=== PATIENT | male | born 1950 | race African-American/Black ===

== ENCOUNTER 2017-05-06 05:08 | Inpatient (IN) | payer MEDICARE ==
[2017-05-06 05:43] LABS: #Eosinphils 0.1 thou/uL (0.0-0.7); #Lymphocytes 1.5 thou/uL (1.20-3.40); #Monocytes 0.6 thou/uL (0.11-0.59); #Neutrophils 1.6 thou/uL (1.40-6.50); %Basophils 0.5 % (0.0-1.0); %Eosinophils 2.8 % (0.0-10.0); %Lymphocytes 39.5 % (21.0-51.0); %Monocytes 14.8 % (0.0-10.0); Red Blood Cell (RBC) Count 3.28 mill/uL (4.70-6.10); White Blood Cell (WBC) Count 3.8 thou/uL (4.8-10.8)
[2017-05-06 05:55] LABS: ALT (SGPT) 8 U/L (8-55); AST (SGOT) 29 U/L (5-34); Alkaline Phosphatase 55 U/L (40-150); Anion Gap 12 mmol/L (10-20); BUN (Urea Nitrogen) 24 mg/dL (8.4-25.7); Bilirubin, Total 1.7 mg/dL (0.2-1.2); Calc. Creatinine Clearance 0 mL/min (70-130); Calcium 8.9 mg/dL (7.8-10.44); Carbon Dioxide 25 mmol/L (23-31); Chloride 107 mmol/L (98-107); Estimated GFR-MDRD 70; Globulin 5.6 g/dL (2.4-3.5); Protein, Total 8.8 g/dL (5.8-8.1)
[2017-05-06 05:59] LABS: Troponin I 0.031 ng/mL (< 0.028)
[2017-05-06] MEDS ORDERED: Ondansetron HCl/PF 4 MG/2 ML Vial IVP PRN (08:25)
[2017-05-06] MEDS ORDERED: Ondansetron ODT 4 MG TAB PO PRN ×2 (08:25→12:38)
[2017-05-06] MEDS ORDERED: Acetaminophen 325 MG TAB PO PRN (08:26)
[2017-05-06 09:24] LABS: BF Reference Range Comment Note:
[2017-05-06 09:37] LABS: Troponin I 0.025 ng/mL (< 0.028)
[2017-05-06 10:07] LABS: Fluid, Protein 4.7 g/dL (Not Available)
[2017-05-06 10:38] LABS: BF Color Yellow
[2017-05-06 11:49] LABS: Number Cells Counted-Fluids 100
[2017-05-06 12:04] LABS: Troponin I 0.028 ng/mL (< 0.028)
[2017-05-06] MEDS ORDERED: hydrALAZINE 20 MG/ML VIAL SLOW IVP PRN (12:38)
[2017-05-06] MEDS ORDERED: Acetaminophen 500 MG TAB PO PRN (12:38)
[2017-05-06] MEDS ORDERED: cloNIDine 0.1 MG TAB PO PRN (12:38)
[2017-05-06] MEDS ORDERED: cefTRIAXone\\ROCEPHIN 1 GM in Sodium Chloride 0.9% 100 ML IVPB SCH (12:45)
[2017-05-06] MEDS ORDERED: CEFAZOLIN 1 GM, Syringe 2.5 ML in Sterile Water 7.5 ML SLOW IVP SCH (13:00)
--- NOTE | 2017-05-06 13:46 | HP ---
DATE OF ADMISSION: 05/06/2017 PRIMARY CARE PROVIDER: Dr. Campos at the [facility] in [place], [place]. CHIEF COMPLAINT: Shortness of breath and swelling. HISTORY OF PRESENT ILLNESS: This is a 67-year-old male well known to the primary children[facility] hospital service due to chronic hepatic cirrhosis with recurrent ascites and congestive heart failure with anasarca. The patient had noticed over the last 48 hours, increased shortness of breath, swelling of his lower extremities and increasing abdominal girth. The patient states he has been compliant w ith his chronic medication regimen including spironolactone and Lasix; however, has had increasing d ietary sodium ingestion. The patient states the symptoms of shortness of breath increased with nonp roductive cough and difficulty lying flat. The patient denies any specific fever, chills, trauma, o r injury. The patient states he normally uses oxygen intermittently at home by nasal cannula as wel l as bronchodilator therapy with DuoNebs. The patient states he was not receiving any relief with h is regular medications, DuoNebs and presented to the emergency room for evaluation. In the emergenc y room, patient underwent evaluation including initiation of oxygen therapy as well as undergoing pa racentesis with 3 liters of ascites removed. The patient states it symptomatically improved after t he paracentesis, but has residual shortness of breath. PAST MEDICAL HISTORY: 1. Hepatic cirrhosis with ascites. 2. Chronic hepatitis C. 3. Bioprosthetic aortic valve replacement. 4. Chronic atrial fibrillation with variable rate. 5. Nonischemic cardiomyopathy with ejection fraction of 30%-35%. 6. Portal hypertension. 7. Hypertension. 8. Dyslipidemia. 9. Chronic cocaine abuse. 10. Recurrent hospital admissions. 11. Systolic congestive heart failure with ejection fraction of 30%-35%. PAST SURGICAL HISTORY: 1. Status post right hip surgery. 2. Status post ankle surgery. CURRENT MEDICATIONS: 1. Aspirin 81 mg 1 tablet p.o. daily. 2. Coreg 25 mg p.o. b.i.d. 3. Vitamin D3 1000 units p.o. daily. 4. Docusate sodium 250 mg p.o. daily. 5. Lexapro 20 mg p.o. daily. 6. Ferrous sulfate 325 mg 1 tablet p.o. daily. 7. Lasix 40 mg 1 tablet p.o. daily. 8. DuoNeb 3 mL nebulized q.4 hours p.r.n. 9. Imdur 30 mg 1 tablet p.o. daily. 10. Protonix 40 mg 1 tablet p.o. daily. 11. K-Dur 20 mEq one tablet p.o. daily. 12. Aldactone 25 mg p.o. b.i.d. ALLERGIES: No known drug allergies. FAMILY HISTORY: Mom in her 70s of ovarian cancer. Father with history of coronary artery dise ase, in his 70s. SOCIAL HISTORY: The patient resides in [place], [place]. Disabled. Former . Admits t o cocaine use regularly. No tobacco or alcohol use. Resides with his sister. REVIEW OF SYSTEMS: The following complete review of systems was negative, unless otherwise mentione d in the HPI or below: Constitutional: Weight loss or gain, ability to conduct usual activities. Skin: Rash, itching. Eyes: Double vision, pain. ENT/Mouth: Nose bleeding, neck stiffness, pain, tenderness. Cardiovascular: Palpitations, dyspnea on exertion, orthopnea. Respiratory: Shortness of breath, wheezing, cough, hemoptysis, fever or night sweats. Gastrointestinal: Poor appetite, abdominal pain, heartburn, nausea, vomiting, constipation, or diar amilcar. Genitourinary: Urgency, frequency, dysuria, nocturia. Musculoskeletal: Pain, swelling. Neurologic/Psychiatric: Anxiety, depression. Allergy/Immunologic: Skin rash, bleeding tendency. Otherwise negative except as stated per HPI. PHYSICAL EXAMINATION: VITAL SIGNS: On admission, blood pressure 188/82, pulse 69, respiratory rate is 18, temperature 97. 9 degrees Fahrenheit, O2 saturation 100% on 2.5 liters per minute by nasal cannula. GENERAL APPEARANCE: This is a 67-year-old male sitting on the hospital bed, alert and oriented x3, in mild respiratory distress. HEENT: Pupils are equal, round, and reactive to light and accommodation. Extraocular muscles are i ntact. No scleral icterus, no conjunctival injection. Nares patent. OP is clear. Teeth in poor r epair. NECK: Supple, no cervical adenopathy, no thyromegaly. Bilateral JVD noted. No evidence of meninge al signs. CHEST: Diminished breath sounds bilaterally with bibasilar crackles and rhonchi. CARDIOVASCULAR: S1 and S2 with irregular rate and rhythm. ABDOMEN: Protuberant with distention, no focal tenderness. Landmarks are difficult to palpate due to patient's body habitus. Positive fluid wave noted. EXTREMITIES: Bilateral pitting edema. Pulses are palpable distally at the dorsalis pedis, posterio r tibial, and popliteal arteries bilaterally. Capillary refill less than 2 seconds. NEUROLOGIC: Cranial nerves II-XII are grossly intact. No focal or lateralizing signs appreciated. PERTINENT LABORATORY DATA AND X-RAY FINDINGS: Sodium 140, potassium 3.9, chloride 107, CO2 25, BUN 24, creatinine 1.25 with estimated GFR of 70, glucose 82, calcium 8.9, total bilirubin 1.7. LFTs wi thin normal limits. Troponin I ranged between 0.025-0.031 and BNP 2162 previously noted at 2388 on 03/02/2017. Albumin 3.2. CBC showed white blood cell count of 3.8, hemoglobin 9.4, hematocrit 31, platelet count 128 with 42% neutrophils. Paracentesis fluid on 05/06/2017 showed hazy consistency. Glucose 87, total protein 4.7, and LDH 127. WBCs 289, RBCs 2300. EKG dated 05/06/2017 by my inter pretation shows atrial fibrillation with rates in the 70s. Normal R-wave progression noted in the p recordial leads. Normal axis. No acute ST-T wave changes appreciated. ASSESSMENT AND PLAN: 1. Acute on chronic systolic congestive heart failure with ejection fraction of 30%-35%. The patie nt will be admitted to the telemetry unit. We will continue Lasix 40 mg IV q.12 hours. Daily weigh ts and strict I's and O's. Recent 2D transthoracic echocardiogram performed on 02/02/2017 showed ej ection fraction of 30%-35% with diastolic dysfunction. Continue to monitor fluid status. 2. 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 Status post paracentesis with 3 lit ers removed. Pathology of the ascitic fluid pending. We will continue Rocephin 1 gram IV q.24 hour s, pending ascitic fluid evaluation. Concern for spontaneous bacterial peritonitis. 3. Question of spontaneous bacterial peritonitis. See #2 above. Continue Rocephin 1 gram IV q.24 hours. 4. Chronic hepatitis C with end-stage liver disease/cirrhosis. Continue spironolactone 25 mg p.o. b.i.d. Continue Lasix as outlined previously. Consult GI Service for any further recommendations 5. Low sodium diet. 6. Hypertension. Resume home antihypertensive regimen and monitor clinical response. 7. Chronic obstructive pulmonary disease. No evidence to suggest acute exacerbation. Main clinica l component of volume overload as stated previously. Continue DuoNebs 3 mL nebulized q.4 hours p.r. n. Continue oxygen to maintain O2 saturations greater than or equal to 90%. 8. Pancytopenia secondary to end-stage liver disease. Stable currently. No evidence to suggest ac tereso blood loss. Repeat CBC in the a.m. 9. Prophylaxis. Sequential compression devices while in bed, Protonix 40 mg p.o. daily. 10. Code status is FULL. Surrogate medical decision maker is patient's sister.
[2017-05-06] MEDS: Furosemide 40 MG/4 ML VIAL SLOW IVP SCH (13:53)
[2017-05-06] MEDS: cefTRIAXone\\ROCEPHIN 1 GM, Syringe 0.4 ML in Sterile Water 9.6 ML SLOW IVP SCH (13:53)
[2017-05-06] MEDS ORDERED: Spironolactone 25 MG TAB PO SCH (17:00)
[2017-05-06] MEDS ORDERED: Promethazine HCl 25 MG/ML VIAL SLOW IVP PRN (19:14)
[2017-05-06] MEDS: Promethazine HCl 12.5 MG in Sodium Chloride 0.9% 50 ML IVPB PRN (20:19)
[2017-05-06] MEDS ORDERED: Carvedilol 3.125 MG TAB PO SCH (21:00)
[2017-05-06] MEDS ORDERED: Famotidine 20 MG TAB PO SCH (21:00)
[2017-05-07] MEDS: Promethazine HCl 12.5 MG in Sodium Chloride 0.9% 50 ML IVPB PRN ×2 (02:43→15:37)
[2017-05-07] MEDS: Furosemide 40 MG/4 ML VIAL SLOW IVP SCH (06:21)
[2017-05-07 06:22] LABS: Band 10 % (5-11); Elliptocytes SLIGHT = 2-5 cells (100X) (0-1/hpf); Hematocrit 27.2 % (42.0-52.0); Mean Platelet Volume 10.5 fL (7.4-10.4); Neutrophil 79 % (42-75); Red Blood Cell (RBC) Count 2.93 mill/uL (4.70-6.10); Target Cells SLIGHT = 2-5 cells (100X) (0-1/hpf); White Blood Cell (WBC) Count 7.8 thou/uL (4.8-10.8)
[2017-05-07 06:26] LABS: ALT (SGPT) 9 U/L (8-55); AST (SGOT) 30 U/L (5-34); Alkaline Phosphatase 47 U/L (40-150); Anion Gap 10 mmol/L (10-20); BUN (Urea Nitrogen) 27 mg/dL (8.4-25.7); Bilirubin, Total 1.7 mg/dL (0.2-1.2); Calc. Creatinine Clearance 68 mL/min (70-130); Calcium 8.4 mg/dL (7.8-10.44); Carbon Dioxide 24 mmol/L (23-31); Chloride 105 mmol/L (98-107); Estimated GFR-MDRD 68; Globulin 4.6 g/dL (2.4-3.5); Protein, Total 7.3 g/dL (5.8-8.1)
--- NOTE | 2017-05-07 08:03 | CON ---
DATE OF CONSULTATION: 05/06/2017 HISTORY OF PRESENT ILLNESS: The patient is a 67-year-old -[place]ong[place] gentleman who has been se en in the past for ascites felt secondary to right heart failure. His main complaint was increasing shortness of breath and swelling in his lower extremities, scrotum and abdomen. He has been follow ed at the [place] in [place]. He subsequently underwent a paracentesis with improvement in his s welling. He has had no fever or chills. No nausea or vomiting. He has no melena or hematochezia. PAST MEDICAL HISTORY: Includes, 1. Cardiomyopathy with ejection fraction of 30%-35% and right heart failure. 2. Chronic hepatitis C. 3. Aortic valve replacement. 4. Atrial fibrillation. PAST SURGICAL HISTORY: Includes hip and ankle surgery. MEDICATIONS ON ADMISSION: Include aspirin 81 mg p.o. daily, Aldactone 25 mg p.o. b.i.d., K-Dur 20 m Eq p.o. daily, Protonix 40 mg 1 p.o. daily, Imdur 30 mg 1 p.o. daily, DuoNeb, furosemide 40 mg 1 p.o . daily, iron, Lexapro 20 mg p.o. every day, docusate sodium 250 mg p.o. b.i.d., vitamin D, and Core g 25 mg p.o. daily. ALLERGIES: No known allergies. SOCIAL HISTORY: Does not smoke or drink. Apparently continues to use cocaine regularly. FAMILY HISTORY: Negative for GI or liver disease. REVIEW OF SYSTEMS: CONSTITUTIONAL: No fever or chills. No weight loss. EYES: No blurred vision or double vision. ENT: No sore throat or earaches. CARDIOVASCULAR: No chest pain, palpitations. PULMONARY: Positive for shortness of breath. Negative for wheezes. GASTROINTESTINAL: See above. GENITOURINARY: No hematuria or dysuria. MUSCULOSKELETAL: No joint pain or muscle weakness. SKI N: No rashes. NEUROLOGIC: No numbness or seizure activity. PHYSICAL EXAMINATION: GENERAL: Shows older -Mongolian gentleman in no apparent distress. VITAL SIGNS: Temperature is 98.3, pulse 68, respiratory rate 20, blood pressure 104/57. HEENT: Showed some poor dentition. NECK: Supple. CHEST: Clear. CARDIOVASCULAR: Regular rate and rhythm. ABDOMEN: Protuberant, soft, no palpable organomegaly or masses. RECTAL: Deferred. Scrotum shows significant edema. EXTREMITIES: Showed 1+ bilateral edema. LABORATORY DATA: On admission shows bilirubin of 1.7, BNP of 2162, total protein 88, and albumin 3. 2. White blood cell count 3.8, hemoglobin 9.4, hematocrit 31.0, and platelet count 128,000. Parace ntesis fluid shows 289 WBCs with 1% neutrophils, total protein is 4.7. Previous albumin is 1.4 with serum albumin, ascites gradient of 0.9. ASSESSMENT: 1. Cardiomyopathy with low ejection fraction and right heart failure. 2. Ascites secondary to #1. 3. History of hepatitis C - patient is not a treatment candidate. 4. Aortic valve replacement. RECOMMENDATIONS: 1. Continue periodic paracentesis, this can be performed on an outpatient basis. 2. Continue spironolactone. The dose here could be increased from 50 mg per day to 1-200 mg per da y. 3. No evidence of SBP. Therefore, antibiotics can be discontinued. 4. Continue furosemide. 5. Low sodium diet. 6. Fluid restriction. Patient is essentially stable for discharge from gastrointestinal standpoint.
[2017-05-07] MEDS: Docusate (Surfak) 240 MG CAP PO SCH (09:29)
[2017-05-07] MEDS: Ferrous Sulfate 325 MG TAB PO SCH (09:29)
[2017-05-07] MEDS: Escitalopram Oxalate 20 mg Tablet PO SCH (09:29)
[2017-05-07] MEDS: Potassium Chloride 20 MEQ TAB PO SCH (09:30)
[2017-05-07] MEDS: Spironolactone 100 MG TAB PO SCH (10:15)
[2017-05-07] MEDS: Carvedilol 25 MG TAB PO SCH ×2 (10:15→20:28)
--- NOTE | 2017-05-07 10:21 | PDOC.PN ---
- Subjective Encounter Start Date: 05/07/17 Encounter Start Time: 10:10 Subjective: f/u for cirrhosis and CHF with volume overload. Received IV Lasix and -: Aldactone in addition to paracentesis with 3 L removed. Overall feeling -: better. Nsg reports BP low and morning meds were held. - Objective Resuscitation Status: Resuscitation Status FULL:Full Resuscitation MAR Reviewed: Yes Vital Signs & Weight: Vital Signs (12 hours) Temp Pulse Resp BP BP Pulse Ox 05/07/17 09:38 70 104/55 L 05/07/17 09:25 63 93/52 L 05/07/17 09:18 98.2 F 68 20 85/48 L 94 L 05/07/17 04:20 93 L 05/07/17 04:00 98.3 F 68 20 104/57 L 96 Weight Weight 184 lb 11.2 oz I&O: 05/06/17 05/07/17 05/08/17 06:59 06:59 06:59 Intake Total 1540 Output Total 1275 Balance 265 Result Diagrams: 05/07/17 05:36 05/07/17 05:36 Additional Labs: Microbiology 05/06/17 07:30 Paracentesis fluid Body Fluid Culture - Preliminary Laboratory Tests 05/06/17 05/06/17 05/06/17 05:20 05:20 05:20 Hgb 9.4 L Plt Count 128 L Creatinine 1.25 B-Natriuretic Peptide 2162.2 H Albumin 05/07/17 05:36 Hgb Plt Count Creatinine B-Natriuretic Peptide Albumin 2.7 L EKG Reviewed by me: Yes (Tele - A-fib in 80's) Phys Exam - Physical Examination Constitutional: NAD HEENT: PERRLA, oral pharynx no lesions Neck: no JVD, supple basilar coarse sounds and crackles Respiratory: no wheezing Cardiovascular: irregular mild distention Gastrointestinal: soft, positive bowel sounds Musculoskeletal: pulses present, edema present Neurological: normal sensation, moves all 4 limbs Psychiatric: A&O x 3 Skin: normal turgor, cap refill <2 seconds Dx/Plan (1) Acute on chronic systolic CHF (congestive heart failure) Code(s): I50.23 - ACUTE ON CHRONIC SYSTOLIC (CONGESTIVE) HEART FAILURE Status : Acute Comment: EF 30-35%, hold Lasix this am due to hypotension, monitor fluid status (2) Atrial fibrillation Code(s): I48.91 - UNSPECIFIED ATRIAL FIBRILLATION Status: Chronic Qualifiers: Atrial fibrillation type: chronic Qualified Code(s): I48.2 - Chronic atrial fibrillation Comment: Rate controlled currently, continue Coreg (3) Liver disease, chronic, with cirrhosis Code(s): K74.60 - UNSPECIFIED CIRRHOSIS OF LIVER; K76.9 - LIVER DISEASE, UNSPECIFIED Status: Chronic Comment: also has hep c, s/p paracentesis with 3L removed (4) Nonischemic cardiomyopathy Code(s): I42.9 - CARDIOMYOPATHY, UNSPECIFIED Status: Chronic Comment: EF 30- 35%, decompensated, see above (5) Pancytopenia Code(s): D61.818 - OTHER PANCYTOPENIA Status: Chronic Comment: due to Hep c cirrhosis. - Plan continue antibiotics, PT/OT, licensed social worker, DVT proph w/SCDs Stable currently -: Hold Diuretics this am due to hypotension -: Convert Lasix to 40mg po daily -: PT for evaluation/mobilization -: Antiemetics prn * Continue Rocephin 1gm IV q24h for one more dose then d/c * AM lab: BMP, CBC * ? Home in 24h
[2017-05-07] MEDS: cefTRIAXone\\ROCEPHIN 1 GM, Syringe 0.4 ML in Sterile Water 9.6 ML SLOW IVP SCH (14:14)
[2017-05-08 06:23] LABS: Anion Gap 10 mmol/L (10-20); BUN (Urea Nitrogen) 31 mg/dL (8.4-25.7); Calc. Creatinine Clearance 65 mL/min (70-130); Calcium 8.6 mg/dL (7.8-10.44); Carbon Dioxide 25 mmol/L (23-31); Chloride 103 mmol/L (98-107); Estimated GFR-MDRD 65
[2017-05-08 06:27] LABS: Anisocytosis MODERATE=16-30 cells (100X) (0-5/hpf); Band 7 % (5-11); Elliptocytes MODERATE= 6-15 cells (100X) (0-1/hpf); Hematocrit 27.1 % (42.0-52.0); Mean Platelet Volume 9.8 fL (7.4-10.4); Neutrophil 65 % (42-75); Red Blood Cell (RBC) Count 2.88 mill/uL (4.70-6.10); White Blood Cell (WBC) Count 5.2 thou/uL (4.8-10.8)
[2017-05-08] MEDS: Spironolactone 100 MG TAB PO SCH (08:42)
[2017-05-08] MEDS: Potassium Chloride 20 MEQ TAB PO SCH (08:44)
[2017-05-08] MEDS: Carvedilol 25 MG TAB PO SCH ×2 (08:45→21:19)
[2017-05-08] MEDS: Ferrous Sulfate 325 MG TAB PO SCH (08:45)
[2017-05-08] MEDS: Docusate (Surfak) 240 MG CAP PO SCH (08:45)
[2017-05-08] MEDS: Escitalopram Oxalate 20 mg Tablet PO SCH (08:45)
--- NOTE | 2017-05-08 10:23 | PDOC.PN ---
- Subjective Encounter Start Date: 05/08/17 Encounter Start Time: 10:00 Subjective: f/u for cirrhosis, volume overload and s/p paracentesis with 3L removed. -: No fever. SOB less today. Still weak and some residual coughing. - Objective Resuscitation Status: Resuscitation Status FULL:Full Resuscitation MAR Reviewed: Yes Vital Signs & Weight: Vital Signs (12 hours) Temp Pulse Resp BP BP Pulse Ox 05/08/17 08:49 98.3 F 66 16 125/56 L 92 L 05/08/17 08:17 98.3 F 66 16 05/08/17 05:25 98.3 F 67 18 108/54 L 98 Weight Weight 186 lb I&O: 05/07/17 05/08/17 05/09/17 06:59 06:59 06:59 Intake Total 1540 1520 Output Total 1275 1025 Balance 265 495 Result Diagrams: 05/08/17 05:35 05/08/17 05:35 Additional Labs: Microbiology 05/06/17 07:30 Paracentesis fluid Body Fluid Culture - Preliminary Laboratory Tests 05/06/17 05/06/17 05/06/17 05:20 05:20 05:20 Hgb 9.4 L Plt Count 128 L Creatinine 1.25 B-Natriuretic Peptide 2162.2 H Albumin 05/07/17 05:36 Hgb Plt Count Creatinine B-Natriuretic Peptide Albumin 2.7 L EKG Reviewed by me: Yes (Tele: A-fib in 70's) Phys Exam - Physical Examination Constitutional: NAD alert, responsive HEENT: PERRLA, oral pharynx no lesions Neck: no JVD, supple few basilar coarse sounds Cardiovascular: irregular moderate distention, diffuse tenderness Gastrointestinal: soft, positive bowel sounds Musculoskeletal: no edema, pulses present Neurological: moves all 4 limbs Psychiatric: A&O x 3 Skin: normal turgor, cap refill <2 seconds Dx/Plan (1) Acute on chronic systolic CHF (congestive heart failure) Code(s): I50.23 - ACUTE ON CHRONIC SYSTOLIC (CONGESTIVE) HEART FAILURE Status : Acute Comment: EF 30-35%, hold Lasix this am due to hypotension, monitor fluid status (2) Atrial fibrillation Code(s): I48.91 - UNSPECIFIED ATRIAL FIBRILLATION Status: Chronic Qualifiers: Atrial fibrillation type: chronic Qualified Code(s): I48.2 - Chronic atrial fibrillation Comment: Rate controlled currently, continue Coreg (3) Liver disease, chronic, with cirrhosis Code(s): K74.60 - UNSPECIFIED CIRRHOSIS OF LIVER; K76.9 - LIVER DISEASE, UNSPECIFIED Status: Chronic Comment: also has hep c, s/p paracentesis with 3L removed (4) Nonischemic cardiomyopathy Code(s): I42.9 - CARDIOMYOPATHY, UNSPECIFIED Status: Chronic Comment: EF 30- 35%, decompensated, see above (5) Pancytopenia Code(s): D61.818 - OTHER PANCYTOPENIA Status: Chronic Comment: due to Hep c cirrhosis. - Plan PT/OT, social science professor, out of bed/ambulate, DVT proph w/SCDs Stable overall -: Palliative care assistance appreciated -: Likely candidate for hospice outpt -: Start Lactulose 20gm TID -: Hold Lasix another 24h due to hypotension * Likely home in 24h
[2017-05-08] MEDS: Guaifenesin DM 100-10/5 ML UDCUP PO PRN ×2 (12:40→21:27)
--- NOTE | 2017-05-08 13:00 | PRG ---
DATE OF SERVICE: 05/08/2017 SUBJECTIVE: The patient is about the same, breathing a little bit better. He says his abdominal di stention is about the same. OBJECTIVE: VITAL SIGNS: Temperature 98.7, pulse 68, respiratory rate 18, blood pressure 97/50. CHEST: Clear. CARDIOVASCULAR: Regular rate and rhythm. ABDOMEN: Protuberant, nontender. EXTREMITIES: Show 1+ edema. LABORATORY DATA: Shows a white blood cell count of 5.3, hemoglobin 8.3, hematocrit 27.1, platelet c ount 103. Chemistries show sodium 134, BUN 31, creatinine 1.34, glucose 78. ASSESSMENT: 1. Ascites. 2. Cardiomyopathy. 3. Cirrhosis. RECOMMENDATIONS: Agree with stated plan of outpatient paracentesis with transfer into hospice progr am.
[2017-05-08] MEDS: cefTRIAXone\\ROCEPHIN 1 GM, Syringe 0.4 ML in Sterile Water 9.6 ML SLOW IVP SCH (15:50)
[2017-05-09] MEDS: Promethazine HCl 12.5 MG in Sodium Chloride 0.9% 50 ML IVPB PRN (02:00)
[2017-05-09] MEDS: Spironolactone 100 MG TAB PO SCH (09:39)
[2017-05-09] MEDS: Docusate (Surfak) 240 MG CAP PO SCH (09:39)
[2017-05-09] MEDS: Escitalopram Oxalate 20 mg Tablet PO SCH (09:39)
[2017-05-09] MEDS: Potassium Chloride 20 MEQ TAB PO SCH (09:40)
[2017-05-09] MEDS: Ferrous Sulfate 325 MG TAB PO SCH (09:40)
[2017-05-09] MEDS: Carvedilol 25 MG TAB PO SCH ×2 (09:40→21:32)
[2017-05-09] MEDS: cefTRIAXone\\ROCEPHIN 1 GM, Syringe 0.4 ML in Sterile Water 9.6 ML SLOW IVP SCH (15:03)
--- NOTE | 2017-05-09 16:22 | PDOC.PN ---
- Subjective Encounter Start Date: 05/09/17 Encounter Start Time: 16:00 Subjective: f/u for cirrhosis and volume overload s/p paracentesis with 3L removed. -: Less SOB but not ambulating much in room. Mainly sleeping most of the -: time. - Objective Resuscitation Status: Resuscitation Status FULL:Full Resuscitation MAR Reviewed: Yes Vital Signs & Weight: Vital Signs (12 hours) Temp Pulse Resp BP BP Pulse Ox 05/09/17 12:50 98.2 F 64 16 119/56 L 05/09/17 09:45 98.1 F 69 18 100 05/09/17 08:25 98.1 F 69 18 122/52 L 100 Weight Weight 186 lb 9.6 oz I&O: 05/08/17 05/09/17 05/10/17 06:59 06:59 06:59 Intake Total 1520 1260 Output Total 1025 1525 Balance 495 -265 Result Diagrams: 05/08/17 05:35 05/08/17 05:35 EKG Reviewed by me: Yes (Tele - A-fib in 70's) Phys Exam - Physical Examination Constitutional: NAD opens eyes and talks briefly to name HEENT: PERRLA, oral pharynx no lesions Neck: no JVD, supple few scattered coarse sounds Cardiovascular: irregular + distention Gastrointestinal: soft, non-tender, positive bowel sounds Musculoskeletal: pulses present, edema present Neurological: normal sensation, moves all 4 limbs Psychiatric: A&O x 3 Skin: normal turgor, cap refill <2 seconds Dx/Plan (1) Acute on chronic systolic CHF (congestive heart failure) Code(s): I50.23 - ACUTE ON CHRONIC SYSTOLIC (CONGESTIVE) HEART FAILURE Status : Acute Comment: EF 30-35%, hold Lasix due to hypotension, monitor fluid status (2) Atrial fibrillation Code(s): I48.91 - UNSPECIFIED ATRIAL FIBRILLATION Status: Chronic Qualifiers: Atrial fibrillation type: chronic Qualified Code(s): I48.2 - Chronic atrial fibrillation Comment: Rate controlled currently, continue Coreg 25mg BID (3) Liver disease, chronic, with cirrhosis Code(s): K74.60 - UNSPECIFIED CIRRHOSIS OF LIVER; K76.9 - LIVER DISEASE, UNSPECIFIED Status: Chronic Comment: also has hep c, s/p paracentesis with 3L removed, continue Lactulose and Aldactone, check Ammonia level in am (4) Nonischemic cardiomyopathy Code(s): I42.9 - CARDIOMYOPATHY, UNSPECIFIED Status: Chronic Comment: EF 30- 35%, decompensated, see above (5) Pancytopenia Code(s): D61.818 - OTHER PANCYTOPENIA Status: Chronic Comment: due to Hep c cirrhosis. - Plan PT/OT, social media marketing analyst, out of bed/ambulate, DVT proph w/SCDs Stable currently -: Continue Coreg 25mg BID -: Continue Lactulose 20gm TID -: Continue Aldactone 100mg daily -: AM lab: BMP, Ammonia * Likely home in 24h
[2017-05-10 05:40] LABS: Anion Gap 14 mmol/L (10-20); BUN (Urea Nitrogen) 30 mg/dL (8.4-25.7); Calc. Creatinine Clearance 65 mL/min (70-130); Calcium 8.7 mg/dL (7.8-10.44); Carbon Dioxide 21 mmol/L (23-31); Chloride 105 mmol/L (98-107); Estimated GFR-MDRD 64
--- NOTE | 2017-05-10 08:22 | PDOC.PN ---
- Subjective Encounter Start Date: 05/10/17 Encounter Start Time: 08:50 Subjective: Patient with continued severe distension of abdomen with pressure -: type pain. No changes. - Objective Resuscitation Status: Resuscitation Status FULL:Full Resuscitation MAR Reviewed: Yes Vital Signs & Weight: Vital Signs (12 hours) Temp Pulse Resp BP Pulse Ox 05/10/17 03:51 99 05/10/17 03:50 98.6 F 62 20 110/55 L 90 L 05/09/17 21:31 97.6 F 62 18 118/57 L 99 Weight Weight 181 lb 11.2 oz I&O: 05/09/17 05/10/17 05/11/17 06:59 06:59 06:59 Intake Total 1260 420 Output Total 1525 750 Balance -265 -330 Result Diagrams: 05/08/17 05:35 05/10/17 05:09 Phys Exam - Physical Examination Constitutional: NAD HEENT: moist MMs Respiratory: no wheezing, no rales, no rhonchi Cardiovascular: RRR Gastrointestinal: positive bowel sounds distended, firm, mild TTP diffusely Musculoskeletal: edema present severe scrotal edema Neurological: non-focal, moves all 4 limbs Psychiatric: A&O x 3 Deviation from normal: appears depressed Dx/Plan (1) Acute on chronic systolic CHF (congestive heart failure) Code(s): I50.23 - ACUTE ON CHRONIC SYSTOLIC (CONGESTIVE) HEART FAILURE Status : Acute Comment: EF 30-35%, hold Lasix due to hypotension, monitor fluid status (2) Liver disease, chronic, with cirrhosis Code(s): K74.60 - UNSPECIFIED CIRRHOSIS OF LIVER; K76.9 - LIVER DISEASE, UNSPECIFIED Status: Chronic Comment: also has hep c, s/p paracentesis with 3L removed, continue Lactulose and Aldactone, Ammonia level normal (3) Afib Code(s): I48.91 - UNSPECIFIED ATRIAL FIBRILLATION Status: Chronic (4) Nonischemic cardiomyopathy Code(s): I42.9 - CARDIOMYOPATHY, UNSPECIFIED Status: Chronic Comment: EF 30- 35%, decompensated, see above (5) Pancytopenia Code(s): D61.818 - OTHER PANCYTOPENIA Status: Chronic Comment: due to Hep c cirrhosis. - Plan cont current plan of care ? need repeat paracentesis by GI? Plan d/c home on home health. * . - Discharge Day Encounter end time: 09:25
[2017-05-10] MEDS: Ferrous Sulfate 325 MG TAB PO SCH (09:12)
[2017-05-10] MEDS: Potassium Chloride 20 MEQ TAB PO SCH (09:12)
[2017-05-10] MEDS: Docusate (Surfak) 240 MG CAP PO SCH (09:12)
[2017-05-10] MEDS: Carvedilol 25 MG TAB PO SCH ×2 (09:12→23:13)
[2017-05-10] MEDS: Spironolactone 100 MG TAB PO SCH (09:12)
[2017-05-10] MEDS: Escitalopram Oxalate 20 mg Tablet PO SCH ×2 (09:13→09:15)
[2017-05-10] MEDS ORDERED: Furosemide 40 MG/4 ML VIAL SLOW IVP SCH (12:15)
[2017-05-10] MEDS ORDERED: Furosemide 40 MG TAB PO SCH (12:15)
[2017-05-10] MEDS: Ondansetron HCl/PF 4 MG/2 ML Vial IVP PRN (14:08)
[2017-05-10] MEDS: cefTRIAXone\\ROCEPHIN 1 GM, Syringe 0.4 ML in Sterile Water 9.6 ML SLOW IVP SCH (14:49)
[2017-05-10] MEDS: Guaifenesin DM 100-10/5 ML UDCUP PO PRN (23:15)
[2017-05-11] MEDS ORDERED: Furosemide 40 MG TAB PO SCH (07:30)
--- NOTE | 2017-05-11 08:07 | PDOC.PN ---
- Subjective Encounter Start Date: 05/11/17 Encounter Start Time: 08:00 Subjective: Continued abdominal swelling which is making him more short of breath. No -: other complaints. - Objective Resuscitation Status: Resuscitation Status FULL:Full Resuscitation MAR Reviewed: Yes Vital Signs & Weight: Vital Signs (12 hours) Temp Pulse Resp BP BP Pulse Ox 05/11/17 04:25 98 05/11/17 04:00 98.1 F 77 20 115/54 L 100 05/11/17 00:00 65 18 82/56 L Weight Weight 183 lb 3.2 oz I&O: 05/10/17 05/11/17 05/12/17 06:59 06:59 06:59 Intake Total 420 1270 Output Total 750 1650 Balance -330 -380 Result Diagrams: 05/08/17 05:35 05/10/17 05:09 Phys Exam - Physical Examination Constitutional: NAD HEENT: moist MMs Respiratory: no wheezing, no rales, no rhonchi Cardiovascular: RRR, no significant murmur Gastrointestinal: positive bowel sounds very distended with tense ascites, severe scrotal edema as well Musculoskeletal: pulses present Neurological: non-focal, moves all 4 limbs Psychiatric: normal affect, A&O x 3 Dx/Plan (1) Acute on chronic systolic CHF (congestive heart failure) Code(s): I50.23 - ACUTE ON CHRONIC SYSTOLIC (CONGESTIVE) HEART FAILURE Status : Acute Comment: EF 30-35%, hold Lasix due to hypotension, monitor fluid status (2) Liver disease, chronic, with cirrhosis Code(s): K74.60 - UNSPECIFIED CIRRHOSIS OF LIVER; K76.9 - LIVER DISEASE, UNSPECIFIED Status: Chronic Comment: also has hep c, s/p paracentesis with 3L removed, continue Lactulose and Aldactone, Ammonia level normal (3) Afib Code(s): I48.91 - UNSPECIFIED ATRIAL FIBRILLATION Status: Chronic (4) Nonischemic cardiomyopathy Code(s): I42.9 - CARDIOMYOPATHY, UNSPECIFIED Status: Chronic Comment: EF 30- 35%, decompensated, see above (5) Pancytopenia Code(s): D61.818 - OTHER PANCYTOPENIA Status: Chronic Comment: due to Hep c cirrhosis. - Plan cont current plan of care Consider repeat paracentesis, then can d/c home for continued o/p -: paracentesis. * . - Discharge Day Encounter end time: 08:40
[2017-05-11] MEDS: Spironolactone 100 MG TAB PO SCH (09:32)
[2017-05-11] MEDS: Carvedilol 25 MG TAB PO SCH ×2 (09:32→21:18)
[2017-05-11] MEDS: Ferrous Sulfate 325 MG TAB PO SCH (09:33)
[2017-05-11] MEDS: Docusate (Surfak) 240 MG CAP PO SCH (09:33)
[2017-05-11] MEDS: Potassium Chloride 20 MEQ TAB PO SCH ×2 (09:33→13:35)
[2017-05-11] MEDS: Escitalopram Oxalate 20 mg Tablet PO SCH (09:38)
[2017-05-11] MEDS: Ondansetron HCl/PF 4 MG/2 ML Vial IVP PRN (09:39)
[2017-05-11 10:00] LABS: Anion Gap 15 mmol/L (10-20); BUN (Urea Nitrogen) 32 mg/dL (8.4-25.7); Calc. Creatinine Clearance 52 mL/min (70-130); Calcium 8.9 mg/dL (7.8-10.44); Carbon Dioxide 23 mmol/L (23-31); Chloride 104 mmol/L (98-107); Estimated GFR-MDRD 51
--- NOTE | 2017-05-11 10:45 | PQF ---
CLINICAL DOCUMENTATION IMPROVEMENT CLARIFICATION FORM: ICD-10 Updated PLEASE DO AN ADDENDUM TO THE PROGRESS NOTE WITH ANY DOCUMENTATION UPDATES OR ADDITIONS AND CARRY THROUGH TO DC SUMMARY. THANK YOU. DATE: 05/11/17 ATTN: Dr. Del Angel Please exercise your independent, professional judgment in responding to the clarification form. Clinical indicators are provided on the bottom of this form for your review Please check appropriate box(s): [ X ] Acute Renal Failure (ARF) / Acute Kidney Injury (MICHELLE) (Please specify associated condition, if applicable) [ ] Other Etiology or underlying conditions related to the diagnosis of ARF/ MICHELLE: [ ] Acute on Chronic Renal Failure please specify Stage of CKD (see below) [ ] CKD without ARF/MICHELLE please specify Stage of CKD [ ] Associated Diagnosis: [ ] Other diagnosis [ ] Unable to determine In addition, please specify: Present on Admission (POA): [ ] Yes [ X ] No [ ] Unable to determine For continuity of documentation, please document condition throughout progress notes and discharge summary. Thank You. National Kid[employer] Guidelines for CKD Staging Stage I Kidney damage with normal or increased GFR GFR > 90 Stage II Kidney damage with mildly decreased GFR GFR 60-89 Stage III Kidney damage with moderately decreased GFR GFR 30-59 Stage IVKidney damage with severely decreased GFR GFR 16-29 Stage V Kidney failure GFR <15 ESRD End Stage Renal Disease On dialysis CLINICAL INDICATORS - SIGNS / SYMPTOMS / LABS LAB RESULTS: 05/06 05/08 05/11 CREATININE 1.25 1.34 1.65 ESTIMATED GFR 70 65 51 RISKS: H&P: HX SYSTOLIC CHF; HTN; HEPATIC CIRRHOSIS W/ ASCITES; CHRONIC HEP C. MAR: IV LASIX 40MG 05/10. SPIRONOLACTONE 100MG PO QAM. TREATMENTS: ORDER FOR LAB: CMP 05/06, 05/07 BMP 05/08, 05/10 & 05/11 Thank you, Rosie (This form is maintained as a part of the permanent medical record) 2014 [employer]. All Rights Reserved Rosie Calderon RN, BSN [email or web address] Office: [phone] [facility]
[2017-05-11] MEDS: cefTRIAXone\\ROCEPHIN 1 GM, Syringe 0.4 ML in Sterile Water 9.6 ML SLOW IVP SCH (17:56)
--- NOTE | 2017-05-11 21:57 | PRG ---
DATE OF SERVICE: 05/11/2017 SUBJECTIVE: Mr. Waters complains of increased abdominal distention and tightness. OBJECTIVE: VITAL SIGNS: Temperature 98.6, pulse 64, blood pressure 115/53. GENERAL: He is in no acute distress, alert and oriented. NEUROLOGIC: Reveals no asterixis. LUNGS: Clear to auscultation bilaterally. HEART: Irregular. ABDOMEN: Distended and somewhat tense with ascites. Bowel sounds are present. EXTREMITIES: No lower extremity edema. LABORATORY DATA: Creatinine 1.65. Albumin was 2.7 on 05/07/2017. Platelets 103. He did have para centesis on 05/06/2017, which was negative for evidence of SBP. IMPRESSION: 1. Symptomatic ascites secondary to cirrhosis and history of cardiomyopathy. 2. Acute renal insufficiency. The creatinine has increased from 1.29 to 1.65. He is on spironolac tone 100 mg daily. He is not on at this point. He has remained on ceftriaxone. RECOMMENDATIONS: 1. We will request paracentesis, ultrasound guided by Interventional Radiology for tomorrow. 2. Give albumin 25 grams of up to 3 liters are removed and 50 grams of up to 6 liters are removed. I would not remove more than 6 liters in light of the elevated creatinine. 3. Follow trend of the renal function.
[2017-05-11] MEDS: Guaifenesin DM 100-10/5 ML UDCUP PO PRN (23:30)
[2017-05-12] MEDS: Guaifenesin DM 100-10/5 ML UDCUP PO PRN ×2 (05:41→18:32)
[2017-05-12 07:26] LABS: PTT 37.1 SEC (22.9-36.1); Prothrombin Time 18.8 SEC (12.0-14.7)
[2017-05-12] MEDS ORDERED: Sodium Bicarbonate 2.4 MEQ/5 ML ONE (07:50)
[2017-05-12] MEDS ORDERED: Albumin 25% 25 GM/100 ML BOT IVPB SCH (09:00)
[2017-05-12 09:11] LABS: BF Reference Range Comment Note:
[2017-05-12] MEDS: Carvedilol 25 MG TAB PO SCH ×2 (10:06→22:25)
[2017-05-12] MEDS: Docusate (Surfak) 240 MG CAP PO SCH (10:06)
[2017-05-12] MEDS: Spironolactone 100 MG TAB PO SCH (10:07)
[2017-05-12] MEDS: Ferrous Sulfate 325 MG TAB PO SCH (10:07)
[2017-05-12] MEDS: Escitalopram Oxalate 20 mg Tablet PO SCH (10:08)
--- NOTE | 2017-05-12 10:09 | ULT ---
ULTRASOUND GUIDED PARACENTESIS: Comparison: 03-05-17 FINDINGS: Successful ultrasound guided paracentesis. A total of 6 L of yellow colored ascites was aspirated. T here were no immediate or post procedure complications. Technique: Consent obtained to perform an ultrasound guided paracentesis. Patient's abdomen was evaluated. Righ t lower quadrant was deemed appropriate. Skin was prepped and draped in sterile fashion. 1% Lidocain e, buffered with sodium bicarbonate, used for local anesthesia. Under ultrasound guidance, 7 cm 5 Fr [facility] catheter was advanced into the peritoneal space. Via vacuum bottles, a total of 6 L of yel low colored ascites was aspirated. The patient tolerated the procedure well. No immediate or post pr ocedure complications. IMPRESSION: Successful ultrasound guided paracentesis. POS: [facility]
--- NOTE | 2017-05-12 10:20 | PDOC.PN ---
- Subjective Encounter Start Date: 05/12/17 Encounter Start Time: 10:20 Subjective: Paracentesis with 6 L removed. Feeling much better and breathing -: easier. - Objective Resuscitation Status: Resuscitation Status FULL:Full Resuscitation MAR Reviewed: Yes Vital Signs & Weight: Vital Signs (12 hours) Temp Pulse Resp BP Pulse Ox 05/12/17 08:00 97.2 F L 56 L 18 121/59 L 97 05/12/17 03:44 97.7 F 60 20 105/51 L 97 05/12/17 00:41 82 102/60 05/11/17 23:36 99 05/11/17 23:32 97.8 F 64 20 87/50 L 99 Weight Weight 188 lb 4 oz I&O: 05/11/17 05/12/17 05/13/17 06:59 06:59 06:59 Intake Total 1270 1320 Output Total 1650 1200 Balance -380 120 Result Diagrams: 05/08/17 05:35 05/11/17 09:30 Phys Exam - Physical Examination Constitutional: NAD HEENT: moist MMs Respiratory: no wheezing, no rales, no rhonchi Cardiovascular: RRR Gastrointestinal: positive bowel sounds distended, TTP, softer than yesterday continued scrotal edema Neurological: non-focal, moves all 4 limbs Psychiatric: normal affect, A&O x 3 Dx/Plan (1) Acute on chronic systolic CHF (congestive heart failure) Code(s): I50.23 - ACUTE ON CHRONIC SYSTOLIC (CONGESTIVE) HEART FAILURE Status : Acute Comment: EF 30-35%, hold Lasix due to hypotension and elevated Creatinine, on spironolactone, monitor fluid status (2) Liver disease, chronic, with cirrhosis Code(s): K74.60 - UNSPECIFIED CIRRHOSIS OF LIVER; K76.9 - LIVER DISEASE, UNSPECIFIED Status: Chronic Comment: also has hep c, s/p paracentesis with 3L removed, repeat with 6L removed, continue Lactulose and Aldactone, Ammonia level normal (3) Afib Code(s): I48.91 - UNSPECIFIED ATRIAL FIBRILLATION Status: Chronic (4) Nonischemic cardiomyopathy Code(s): I42.9 - CARDIOMYOPATHY, UNSPECIFIED Status: Chronic Comment: EF 30- 35%, decompensated, see above (5) Pancytopenia Code(s): D61.818 - OTHER PANCYTOPENIA Status: Chronic Comment: due to Hep c cirrhosis. (6) Acute renal failure Status: Acute Comment: recheck creatinine in AM after paracentesis. - Plan cont current plan of care possibly home tomorrow if no significant worsening of renal failure after -: repeat paracentesis * . - Discharge Day Encounter end time: 10:50
[2017-05-12 11:01] LABS: BF Color Yellow
[2017-05-12 11:02] LABS: BF WBC/Nonhematics Ct. - Manua 95 /cumm
[2017-05-12 11:26] LABS: Number Cells Counted-Fluids 100
[2017-05-12] MEDS: cefTRIAXone\\ROCEPHIN 1 GM, Syringe 0.4 ML in Sterile Water 9.6 ML SLOW IVP SCH (14:09)
--- NOTE | 2017-05-12 19:12 | PRG ---
DATE OF SERVICE: 05/12/2017 SUBJECTIVE: Mr. Waters feels much better after his paracentesis. OBJECTIVE: His abdomen is still distended, but much softer now. It is nontender. Fluid studies we re negative for evidence of spontaneous bacterial peritonitis. IMPRESSION: Ascites secondary to cirrhosis and cardiomyopathy. RECOMMENDATIONS: Plan is for discharge tomorrow if his renal function is stable. He is on spironol actone. Lasix was held due to renal insufficiency. The last note by Dr. Hernandez indicated the patient was being transferred to hospice. Unclear what the status of that actually is. I will sign off for now. Please call if GI can be of assistance.
[2017-05-13] MEDS: traMADol HCl 50 MG TAB PO PRN ×2 (00:59→09:08)
[2017-05-13 05:21] LABS: Anion Gap 9 mmol/L (10-20); BUN (Urea Nitrogen) 24 mg/dL (8.4-25.7); Calc. Creatinine Clearance 82 mL/min (70-130); Calcium 8.4 mg/dL (7.8-10.44); Carbon Dioxide 24 mmol/L (23-31); Chloride 105 mmol/L (98-107); Estimated GFR-MDRD 82
[2017-05-13 05:32] LABS: Anisocytosis SLIGHT = 6-15 cells (100X) (0-5/hpf); Hematocrit 27.3 % (42.0-52.0); Mean Platelet Volume 10.2 fL (7.4-10.4); Neutrophil 76 % (42-75); Ovalocytes SLIGHT = 2-5 cells (100X) (0-1/hpf); Red Blood Cell (RBC) Count 2.86 mill/uL (4.70-6.10); Schistocytes SLIGHT = 2-5 cells (100X) (0-1/hpf); White Blood Cell (WBC) Count 5.6 thou/uL (4.8-10.8)
[2017-05-13 06:35] VITALS: BMI 24.8
[2017-05-13 08:06] VITALS: BP 107/54; TEMP 97.8
--- NOTE | 2017-05-13 08:20 | PDOC.PN ---
- Subjective Encounter Start Date: 05/13/17 Encounter Start Time: 08:15 Subjective: Patient with sore right side where paracentesis done. No bleeding/ -: leaking/redness/fever. Better with Tramadol. - Objective Resuscitation Status: Resuscitation Status FULL:Full Resuscitation MAR Reviewed: Yes Vital Signs & Weight: Vital Signs (12 hours) Temp Pulse Resp BP BP Pulse Ox 05/13/17 07:25 97.8 F 66 18 107/54 L 94 L 05/13/17 04:00 98.3 F 71 18 101/56 L 93 L 05/13/17 00:39 91 L Weight Weight 178 lb 1.6 oz I&O: 05/12/17 05/13/17 05/14/17 06:59 06:59 06:59 Intake Total 1320 1630 Output Total 1200 7150 Balance 120 -5520 Result Diagrams: 05/13/17 04:33 05/13/17 04:33 Phys Exam - Physical Examination Constitutional: NAD HEENT: moist MMs Respiratory: no wheezing, no rales, no rhonchi Cardiovascular: RRR, no significant murmur Gastrointestinal: positive bowel sounds distended, soft, TTP around right paracentesis site, no redness/swelling/ warmth, no evidence infection Neurological: non-focal, moves all 4 limbs Psychiatric: normal affect, A&O x 3 Dx/Plan (1) Acute on chronic systolic CHF (congestive heart failure) Code(s): I50.23 - ACUTE ON CHRONIC SYSTOLIC (CONGESTIVE) HEART FAILURE Status : Acute Comment: EF 30-35%, no anticoagulants due to liver failure and risk of bleeding, on Spironolactone (2) Liver disease, chronic, with cirrhosis Code(s): K74.60 - UNSPECIFIED CIRRHOSIS OF LIVER; K76.9 - LIVER DISEASE, UNSPECIFIED Status: Chronic Comment: also has hep c, s/p paracentesis with 3L removed, repeat with 6L removed, continue Lactulose and Aldactone, Ammonia level normal (3) Afib Code(s): I48.91 - UNSPECIFIED ATRIAL FIBRILLATION Status: Chronic (4) Nonischemic cardiomyopathy Code(s): I42.9 - CARDIOMYOPATHY, UNSPECIFIED Status: Chronic Comment: EF 30- 35%, decompensated, see above (5) Pancytopenia Code(s): D61.818 - OTHER PANCYTOPENIA Status: Chronic Comment: due to Hep c cirrhosis. (6) Acute renal failure Status: Resolved Comment: repeat Creatinine normalized off Lasix - Plan cont current plan of care D/C home, f/u with PCP in next few days, repeat paracentesis needed outpati -[facility] or [facility]/u with Dr Hernandez * . - Discharge Day Encounter end time: 08:40
[2017-05-13] MEDS: Spironolactone 100 MG TAB PO SCH (09:07)
[2017-05-13] MEDS: Escitalopram Oxalate 20 mg Tablet PO SCH (09:08)
[2017-05-13] MEDS: Docusate (Surfak) 240 MG CAP PO SCH (09:08)
[2017-05-13] MEDS: Ferrous Sulfate 325 MG TAB PO SCH (09:09)
[2017-05-13] MEDS: Carvedilol 25 MG TAB PO SCH (09:09)
--- NOTE | 2017-05-13 11:30 | DIS ---
PRIMARY CARE PHYSICIAN: [facility]. ADMISSION DIAGNOSES: 1. Acute on chronic systolic congestive heart failure exacerbation. 2. 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 3. Chronic hepatitis C. 4. Chronic obstructive pulmonary disease. 5. Hypertension. 6. Pancytopenia. DISCHARGE DIAGNOSES: 1. Acute on chronic systolic congestive heart failure exacerbation, resolved. 2. Hepatic cirrhosis with ascites status post paracentesis x2. 3. Chronic atrial fibrillation. 4. Nonischemic cardiomyopathy. 5. Pancytopenia. 6. Acute renal failure, resolved. CONSULTATIONS: Gastroenterology, Dr. Hernandez. PROCEDURES: Paracentesis x2 to 3 liters a minute the first time, 6 liters a minute the second time. PERTINENT LABORATORY DATA: Hemoglobin stable at 8.3, mild coagulopathy with a PT of 18 and PTT of 37 . Creatinine initially bumped up to 1.65 with institution of Lasix for congestive heart failure exac erbation. With discontinuation of Lasix and increase in his spironolactone, his creatinine dropped b ack down to 1.09 with a normal potassium. Ascitic fluid cultures negative. SUMMARY OF HOSPITAL COURSE: This is a 67-year-old -Polish male with chronic hepatitis C, ci rrhosis, and congestive heart failure with anasarca. He had increased shortness of breath, increased swelling of lower extremities, increased abdominal girth prior to coming into the emergency room. Jaqueline sunshine had a paracentesis removal of 3 liters of ascitic fluid in the emergency room which helped with his breathing significantly, but has some residual shortness of breath. He was admitted to the hospital , had IV Lasix diuresis with mild improvement of his anasarca, but a significant bump in his creatini ne. Without much improvement in his urine output, he was switched to spironolactone 100 mg daily wit h improvement in urine output and with discontinuation of Lasix, his creatinine returned to normal. The patient did have reaccumulation and worsening of his ascites. During the hospitalization, he had a repeat paracentesis due to worsening shortness of breath from pressure from his abdomen and had ov er 6 liters removed and was felt significantly better after this. He did have some residual abdomina l wall tenderness around the site of the paracentesis, but no evidence of swelling, redness, drainage or infection. He is doing well from cardiorespiratory standpoint on day of discharge and will be di scharged home. DISCHARGE MANAGEMENT: Discharged home. Follow up with [facility] in the next few days with Dr. Hernandez in his office next week, and will need repeat paracentesis. ACTIVITIES: As tolerated. DIET: Low sodium, fluid restricted diet. DISCHARGE MEDICATIONS: 1. Carvedilol 25 mg twice a day. 2. Aspirin 81 mg daily. 3. Vitamin D 3000 units daily. 4. Citalopram 20 mg daily. 5. Docusate 250 mg daily. 6. Potassium chloride 20 mEq daily. 7. Ferrous sulfate 325 mg daily. 8. Imdur 30 mg daily. 9. DuoNeb as needed. 10. Protonix 40 mg daily. 11. Tramadol 50 mg 1-2 tablets every 6 hours as needed for pain, 60 tablets dispensed. 12. Spironolactone 100 mg daily, 30 tablets dispensed. 13. Zofran 4 mg every 6 hours as needed for nausea and vomiting, 15 tablets dispensed.
== END 2017-05-13 12:55 | disposition home health service (06) | DRG 292 ==
LOC: ERS 05:08 → 2NO 06:46
PROVIDERS: ADMIT Internal Medicine; ATTEND Internal Medicine
PROC: 0W9G3ZZ Drainage of Peritoneal Cavity, Percutaneous Approach (ICD-10-PCS; principal; 2017-05-06)
PROC: 0W9G3ZZ Drainage of Peritoneal Cavity, Percutaneous Approach (ICD-10-PCS; 2017-05-12)
DX: I11.0 Hypertensive heart disease with heart failure (principal); N17.9 Acute kidney failure, unspecified; D61.818 Other pancytopenia; I95.9 Hypotension, unspecified; R18.8 Other ascites; K76.6 Portal hypertension; I42.9 Cardiomyopathy, unspecified; K72.90 Hepatic failure, unspecified without coma; K74.60 Unspecified cirrhosis of liver; I50.23 Acute on chronic systolic (congestive) heart failure; I48.2 Chronic atrial fibrillation; B18.2 Chronic viral hepatitis C; J44.9 Chronic obstructive pulmonary disease, unspecified; Z95.2 Presence of prosthetic heart valve; E78.5 Hyperlipidemia, unspecified; F14.10 Cocaine abuse, uncomplicated
CPT/HCPCS: 36415; 49083; 80048; 80053; 82140; 82553; 82945; 83615; 83880; 84157; 84484; 85007; 85025; 85027; 85060; 85610; 85730; 87070; 87205; 89051; 93005; 93798; A4216; J0360; J0696; J1940; J2405; J2550; J7050; P9047; Q0162

== ENCOUNTER 2017-05-24 20:25 | Observation (INO) | payer MEDICARE ==
[2017-05-24 21:27] LABS: ALT (SGPT) 14 U/L (8-55); AST (SGOT) 28 U/L (5-34); Alkaline Phosphatase 68 U/L (40-150); Anion Gap 11 mmol/L (10-20); BUN (Urea Nitrogen) 23 mg/dL (8.4-25.7); Bilirubin, Total 1.6 mg/dL (0.2-1.2); CK (CPK) 76 U/L (30-200); Calc. Creatinine Clearance 0 mL/min (70-130); Calcium 8.6 mg/dL (7.8-10.44); Carbon Dioxide 24 mmol/L (23-31); Chloride 109 mmol/L (98-107); Estimated GFR-MDRD 76; Globulin 4.9 g/dL (2.4-3.5); Protein, Total 7.8 g/dL (5.8-8.1)
[2017-05-24 21:37] LABS: Troponin I 0.038 ng/mL (< 0.028)
[2017-05-24 21:38] LABS: #Eosinphils 0.1 thou/uL (0.0-0.7); #Lymphocytes 1.2 thou/uL (1.20-3.40); #Monocytes 0.5 thou/uL (0.11-0.59); #Neutrophils 1.9 thou/uL (1.40-6.50); %Basophils 0.3 % (0.0-1.0); %Eosinophils 2.3 % (0.0-10.0); %Lymphocytes 32.4 % (21.0-51.0); %Monocytes 12.9 % (0.0-10.0); Hematocrit 29.9 % (42.0-52.0); Mean Platelet Volume 10.5 fL (7.4-10.4); Red Blood Cell (RBC) Count 3.16 mill/uL (4.70-6.10); White Blood Cell (WBC) Count 3.6 thou/uL (4.8-10.8)
--- NOTE | 2017-05-24 21:49 | RAD ---
CHEST TWO VIEWS 05/24/17 HISTORY: Dyspnea. COMPARISON: 03/05/17. FINDINGS: The cardiac silhouette remains markedly enlarged. Pulmonary vasculature is upper limits of normal wit h small amount of right pleural fluid now evident and patchy bibasilar infiltrates, right greater sergio n left. Mediastinum is midline with postoperative changes. IMPRESSION: Chronic CHF. Slight interval increase in right pleural effusion. POS: [facility]
[2017-05-24] MEDS ORDERED: Furosemide 40 MG/4 ML VIAL ONE (22:28)
[2017-05-24 23:20] LABS: Bilirubin Small (Negative); Blood, Urine Negative (Negative); Glucose, Urine (Dipstick) Negative (Negative); Ketone, Urine Negative (Negative); Nitrite Negative (Negative); Protein, Urine (Dipstick) Trace mg/dL (Neg-Trace)
[2017-05-25 00:49] LABS: Troponin I 0.043 ng/mL (< 0.028)
[2017-05-25] MEDS ORDERED: Ondansetron HCl/PF 4 MG/2 ML Vial IVP PRN (01:03)
[2017-05-25] MEDS ORDERED: Ondansetron ODT 4 MG TAB SL PRN (01:03)
[2017-05-25 01:15] VITALS: BMI 26.2
[2017-05-25] MEDS ORDERED: Ondansetron ODT 4 MG TAB PO PRN (01:41)
[2017-05-25] MEDS ORDERED: HYDROcodone/Acetaminophen 10/325 mg Tablet PO PRN (01:41)
[2017-05-25] MEDS ORDERED: Acetaminophen 325 MG TAB PO PRN (01:41)
[2017-05-25] MEDS ORDERED: HYDROcodone/Acetaminophen 5/325 mg Tablet PO PRN (01:41)
[2017-05-25] MEDS ORDERED: Enoxaparin Sodium 40 MG/0.4 ML SYRINGE SC SCH (01:45)
[2017-05-25] MEDS ORDERED: Sodium Chloride 0.9% 1,000 ML IV SCH (01:45)
[2017-05-25 03:35] LABS: #Eosinphils 0.1 thou/uL (0.0-0.7); #Lymphocytes 1.3 thou/uL (1.20-3.40); #Monocytes 0.5 thou/uL (0.11-0.59); #Neutrophils 1.6 thou/uL (1.40-6.50); %Basophils 0.6 % (0.0-1.0); %Eosinophils 2.8 % (0.0-10.0); %Lymphocytes 36.9 % (21.0-51.0); %Monocytes 13.7 % (0.0-10.0); Anisocytosis SLIGHT = 6-15 cells (100X) (0-5/hpf); Elliptocytes MODERATE= 6-15 cells (100X) (0-1/hpf); Hematocrit 27.7 % (42.0-52.0); Mean Platelet Volume 10.8 fL (7.4-10.4); Red Blood Cell (RBC) Count 2.98 mill/uL (4.70-6.10); White Blood Cell (WBC) Count 3.6 thou/uL (4.8-10.8)
[2017-05-25 03:38] LABS: Anion Gap 8 mmol/L (10-20); BUN (Urea Nitrogen) 24 mg/dL (8.4-25.7); Calc. Creatinine Clearance 79 mL/min (70-130); Calcium 8.8 mg/dL (7.8-10.44); Carbon Dioxide 26 mmol/L (23-31); Chloride 109 mmol/L (98-107); Estimated GFR-MDRD 80
[2017-05-25 03:45] LABS: Troponin I 0.034 ng/mL (< 0.028)
--- NOTE | 2017-05-25 06:14 | HP ---
DATE OF ADMISSION: 05/24/2017 TIME OF SERVICE: 2300 hours CHIEF COMPLAINT: Shortness of breath and abdominal distension. HISTORY OF PRESENT ILLNESS: Mr. Waters is a 67-year-old gentleman, admitted here just 2 weeks ago for abdominal distention and ascites. He supposedly had 10 or 11 liters drained during that hospital stay. The patient was discharged home on Aldactone, which the patient says he has been taking. He was taken off his Lasix due to acute kidney injury that happened during that hospital stay with diuresis. He was converted over to Aldactone and produced good urine and was discharged home on that. The patient did not follow up with his primary doctor. He denies using any cocaine since last visit. He states he has been taking his medicines as he is supposed to. Today, he became more short of breath, had been progressive for about a week. He notes increased abdominal distention, bilateral lower extremity edema has remained stable. He denies any chest pain, no nausea or vomiting, no diarrhea or constipation. In the ER, workup was largely unremarkable except for a platelet count of 99, 000. Originally, we were going to admit the patient to Family Practice and they were called and did a paracentesis, removing about 6 liters of fluid and then realized that he was a bounce-back to us. He was given albumin in the emergency department, we were called. The patient has no other current complaints. I did spend a good deal of time talking with the patient about his current medical issues including cirrhosis, third spacing of fluid, chronic lower extremity edema, and portal vein hypertension and the fact that his nonischemic cardiomyopathy and cirrhosis are not fixable. PAST MEDICAL HISTORY: 1. CHF, chronic systolic. 2. Cirrhosis. 3. Portal hypertension. 4. Ascites. 5. Chronic hepatitis C with cirrhosis. 6. Chronic atrial fibrillation. 7. Nonischemic cardiomyopathy, last EF 30% to 35%. 8. Hypertension. 9. Hyperlipidemia. 10. History of chronic cocaine use. PAST SURGICAL HISTORY: Includes; 1. Aortic valve replacement with a bioprosthetic valve. 2. Right hip replacement in 2014. 3. Ankle surgery. HOME MEDICATIONS: 1. Aspirin 81 mg daily. 2. Coreg 25 mg p.o. b.i.d. 3. Vitamin D3 of 1000 units daily. 4. Docusate 250 mg daily. 5. Lexapro 20 mg daily. 6. Iron sulfate 325 mg daily. 7. DuoNeb q.4 hours as needed. 8. Imdur 30 mg daily. 9. Protonix 40 mg daily. 10. Potassium chloride 20 mEq daily. 11. Aldactone 100 mg daily per the discharge note. The patient was taking Lasix 40 mg 1 twice a day prior to his last discharge. ALLERGIES: NKDA. FAMILY HISTORY: His mom had around age 70 with ovarian cancer. Dad had in his 70s with coronary artery disease. No premature coronary artery disease, no diabetes. SOCIAL HISTORY: Significant for regular cocaine use. He is unable to tell me the last time when he used. Denies tobacco or alcohol. REVIEW OF SYSTEMS: A 10-point review of systems was performed and negative for all other systems except as stated per the HPI. PHYSICAL EXAMINATION: VITAL SIGNS: Temperature 98.0, pulse 77, blood pressure 134/69, respiratory rate 18, satting 96% on 2 liters, reportedly 90% on room air. When I saw him, he was 96% on room air. GENERAL: He is awake. He is alert. He is oriented x3. He is a well- developed -[place] male, appears in no acute distress. HEENT: Normocephalic, atraumatic. Pupils are equal and reactive bilaterally. Mucous membranes are moist. There are no visible lesions and no thrush. NECK: Supple. No lymphadenopathy, no carotid upstrokes. He does have 6 cm of JVD present at 45 degrees. LUNGS: Clear anteriorly; however, posteriorly at the bases, he has some coarse crackles. He has some dullness to the right lung base. CARDIOVASCULAR: Normal S1 and S2. I do not appreciate murmurs. ABDOMEN: Distended and tense. He has umbilical hernia present. He does have shifting dullness. He has no peritoneal signs. EXTREMITIES: Showed 3+ edema to the mid thigh level. He has no calf tenderness or palpable cords. SKIN: Otherwise, warm, moist, and well perfused without any rashes or lesions. NEUROLOGIC: Cranial nerves II through XII are grossly intact without any focal neurologic deficits. LABORATORY AND DIAGNOSTIC DATA: CMP is normal. Sodium 140, potassium 4.2, bicarbonate 24, BUN 23, creatinine 1.16, and glucose 119. Total bilirubin slightly elevated at 1.6, total protein 7, albumin 2.9. Liver functions are normal. CBC showed white count 3.6, platelet count 99,000, hemoglobin 9.3, hematocrit of 29.9. There was no differential. Chest x-ray showed slight increase of the right-sided pleural effusion. He had pulmonary vasculature that appeared to be an upper limit of normal, and patchy bibasilar infiltrates. ASSESSMENT AND PLAN: 1. Recurrent ascites: Secondary to his cirrhosis. I talked to the patient about repeat drainage. He had 6 liters taken off and still has some distention. He was given albumin in the ER which may serve to mobilize more of the fluid; however, I did explain to them that this would keep coming back and will be severely symptomatic, so we continue to repeat taps. 2. Chronic hepatitis C with cirrhosis: No plans to treat at the current time. [facility] 3. Chronic systolic congestive heart failure: I do not feel like he has an acute exacerbation, there is some mild fluid in the bases of his lungs; however , I think the big problem here is just continue volume overload. 4. Orthostasis: Patient was felt to be dry based on his labs and presentation. I believe it is intravascularly volume depleted. Orthostatics were performed and showed a 25-point drop in systolic pressure going from seated to standing. We will gently hydrate the patient. Try to replace some of the intravascular fluid. 5. History of chronic atrial fibrillation, currently in sinus rhythm. 6. Nonischemic cardiomyopathy, last EF 30% to 35%: Certainly have to be careful with fluids. 7. Hypertension. Continue home medications. 8. Hyperlipidemia. 9. History of chronic cocaine use. Extensive counseling was given to the patient regarding need to cessate. The patient placed in observation, given gentle fluids. He received albumin in the ER, although this helped mobilize some of the fluid from the surrounding tissues. I told him it would be virtually impossible to get rid of the peripheral edema, and that getting rid of more fluid in his belly would likely lead to further drop in his systolic blood pressure. At this time, we will give him a little bit of fluid. We will hold off any repeat taps, and follow up on cultures in the morning of his peritoneal fluid. He had no peritoneal signs on my exam. BOBBYD
[2017-05-25] MEDS ORDERED: Spironolactone 100 MG TAB PO SCH (08:00)
[2017-05-25] MEDS ORDERED: FLU VACC TS2017-18 (>65YR) 0.5 ML SYRINGE IM ONE (09:00)
[2017-05-25] MEDS ORDERED: Famotidine 20 MG TAB PO SCH (09:00)
[2017-05-25] MEDS ORDERED: Escitalopram Oxalate 20 mg Tablet PO SCH (09:00)
[2017-05-25] MEDS ORDERED: Ferrous Sulfate 325 MG TAB PO SCH (09:00)
[2017-05-25] MEDS ORDERED: FLU VACC QS2017-18 36 mo. & older 0.5 ML SYRINGE IM ONE (09:00)
[2017-05-25] MEDS ORDERED: Carvedilol 25 MG TAB PO SCH (09:00)
[2017-05-25] MEDS ORDERED: Docusate Sodium 100 MG/10 ML UDCUP PO SCH (09:00)
--- NOTE | 2017-05-25 12:08 | DIS ---
DATE OF ADMISSION: 05/24/2017 DATE OF DISCHARGE: 05/25/2017 PRIMARY CARE PROVIDER: [facility] in [place]. FINAL DIAGNOSES: Hypotension post-paracentesis ascites, cirrhosis of the liver, chronic hepatitis C, history of cocaine abuse, history of atrial fibrillation, diabetes mellitus type 2, and dyslipidemia . DISCHARGE MEDICATIONS: Tramadol 50 mg p.o. q.6 hours p.r.n., Aldactone 100 mg a day, potassium chlor vicky 20 mEq a day, Protonix 40 mg a day, Imdur 30 mg a day, DuoNeb 3 mL q.4 hours p.r.n., escitalopram 20 mg a day, vitamin D3 1000 units a day, Coreg 25 mg p.o. b.i.d., and aspirin 81 mg a day. ALLERGIES: No known drug allergies. CODE STATUS: FULL. PENDING AT THE TIME OF DISCHARGE: Nothing. HOSPITAL COURSE: The patient having his paracentesis for ascites done in the emergency room, he lluvia me hypotensive. He is now currently sitting on the side of bed, eating, his vital signs are stable. Cardiorespiratory exam is normal. He has no ascites. He has 3+ edema which is chronic for him. De s laboratory comp metabolic profile reveals bilirubin of 1.6, chloride 109, otherwise fairly unremark able. His CBC shows hemoglobin of 9 plus or minus 0.3. White count low at 3.6, platelet count is lo w at 99-105. His hypotensive state has resolved. Situation has been discussed with him. He is bein g [facility] He has been told that when he shows up for these [place] paracentesis, he needs to have less fluid removed than currently he is being removed as his bloo d pressure is dropping with rapid fluid shifts. His long-term prognosis is very poor, of which he is aware.
[2017-05-25 12:09] VITALS: BP 115/58; TEMP 98
== END 2017-05-25 12:49 | disposition home or self-care (01) ==
LOC: ERS 20:25 → 2SW 23:24
PROVIDERS: ADMIT Internal Medicine Infectious Disease; ATTEND Internal Medicine Infectious Disease
DX: I95.81 Postprocedural hypotension (principal); R18.8 Other ascites; K74.60 Unspecified cirrhosis of liver; B18.2 Chronic viral hepatitis C; E11.9 Type 2 diabetes mellitus without complications; E78.5 Hyperlipidemia, unspecified; I11.0 Hypertensive heart disease with heart failure; I50.22 Chronic systolic (congestive) heart failure; K76.6 Portal hypertension; I48.2 Chronic atrial fibrillation; Z79.82 Long term (current) use of aspirin; Z79.899 Other long term (current) drug therapy; Z95.2 Presence of prosthetic heart valve; Z96.641 Presence of right artificial hip joint; Z98.890 Other specified postprocedural states; Z86.59 Personal history of other mental and behavioral disorders; Z87.891 Personal history of nicotine dependence
CPT/HCPCS: 71020; 80048; 80053; 81003; 82140; 82550; 82553; 83880; 84484 ×3; 85025 ×2; 90732; 93005; 96372; 96374; 99285; G0009; G0378; 36415; 90471; J1650; J1940

== ENCOUNTER 2017-06-05 08:02 | Emergency (ER) | payer MEDICARE ==
[2017-06-05] MEDS ORDERED: EPINEPHrine 1 MG/10 ML Abboject SYRINGE ONE (17:04)
== END 2017-06-05 08:12 ==
LOC: ERS 08:02
DX: I46.9 Cardiac arrest, cause unspecified (principal)
CPT/HCPCS: 36416; 92950; 96374; J0171